=== PATIENT | male | born 1960 | race Caucasian/White ===

== ENCOUNTER → 2016-08-29 | Outpatient (CLI) | payer BC ==
[~2016-08-29] MED LIST: OMEP20CA9 PO; QUIN40TA18 PO; ZOLP10TA PO; [UNRECOGNIZED DRUG - CODE] PO
[2016-08-29 12:13] LABS: BASO % 0.8 %; BASO ABS # 0.05 K/uL (0-0.2); COMPLETE YES; EOS % 6.2 %; HEMATOCRIT 43.4 % (42-52); IG% 0.5 %; LYMPH % 31.8 %; LYMPH ABS # 1.89 K/uL (1.2-3.4); MEAN CELL VOLUME 88.8 fL (80-100); MEAN CORPUSCULAR HEMOGLOBIN 31.9 pg (25-34); MEAN CORPUSCULAR HGB CONC 35.9 g/dl (32-36); MEAN PLATELET VOLUME 9.8 fL (7.4-10.4); MONO % 10.6 %; NEUT % 50.1 %; PLATELET COUNT 319 K/uL (130-400); RED BLOOD COUNT 4.89 M/uL (4.7-6.1); WHITE BLOOD COUNT 5.95 K/uL (4.8-10.8)
[2016-08-29 12:35] LABS: ALT/SGPT 23 U/L (12-78); AST/SGOT 15 U/L (15-37); BLOOD UREA NITROGEN 15 mg/dl (7-18); CALCIUM 8.5 mg/dl (8.5-10.1); CARBON DIOXIDE 27 mmol/L (21-32); CHLORIDE 107 mmol/L (98-107); GLUCOSE 106 mg/dl (70-99); POTASSIUM 3.9 mmol/L (3.5-5.1); SODIUM 140 mmol/L (136-145)
[2016-08-29 12:59] LABS: ALKALINE PHOSPHATASE 51 U/L (45-117); CHOLESTEROL 194 mg/dl (0-200); CHOLESTEROL/HDL RATIO 4.7; HDL CHOLESTEROL 41 mg/dl; LDL CHOLESTEROL CALCULATED 115 mg/dl; TRIGLYCERIDES 190 mg/dl (0-150); VERY LOW DENSITY LIPOPROT CALC 38 mg/dl
== END | disposition home or self-care (01) ==
LOC: C.LAB1850 09:22
PROVIDERS: ATTEND Internal Medicine Pulmonary Disease
DX: I10 Essential (primary) hypertension (principal); J44.9 Chronic obstructive pulmonary disease, unspecified; E78.5 Hyperlipidemia, unspecified

== ENCOUNTER → 2017-01-10 | Outpatient (CLI) | payer BC | END | disposition home or self-care (01) | LOC: C.LAB1850 12:15 | PROVIDERS: ATTEND Urology | DX: R97.20 Elevated prostate specific antigen [PSA] (principal) ==

== ENCOUNTER → 2017-12-05 | Outpatient (CLI) | payer OTHER ==
[~2017-12-05] MED LIST changes: +QUIN1TAB49 PO; -QUIN40TA18 PO
[2017-12-05 12:21] LABS: BASO % 0.9 %; BASO ABS # 0.05 K/uL (0-0.2); EOS % 6.2 %; EOS ABS # 0.33 K/uL (0-0.5); HEMATOCRIT 43.3 % (42-52); HEMOGLOBIN 15.2 g/dL (14.0-18.0); IG# 0.03 K/uL (0.00-0.02); LYMPH % 27.9 %; LYMPH ABS # 1.49 K/uL (1.2-3.4); MEAN CORPUSCULAR HEMOGLOBIN 30.9 pg (25-34); MEAN CORPUSCULAR HGB CONC 35.1 g/dl (32-36); MEAN PLATELET VOLUME 9.8 fL (7.4-10.4); MONO % 10.7 %; MONO ABS # 0.57 K/uL (0.11-0.59); NEUT % 53.7 %; NEUT ABS # 2.88 K/uL (1.4-6.5); PLATELET COUNT 357 K/uL (130-400); RED CELL DISTRIBUTION WIDTH CV 12.8 % (11.5-14.5); RED CELL DISTRIBUTION WIDTH SD 40.9 fL (36.4-46.3); WHITE BLOOD COUNT 5.35 K/uL (4.8-10.8)
[2017-12-05 12:52] LABS: ALBUMIN 3.9 gm/dl (3.4-5.0); ALKALINE PHOSPHATASE 58 U/L (45-117); ALT/SGPT 24 U/L (12-78); AST/SGOT 16 U/L (15-37); BLOOD UREA NITROGEN 12 mg/dl (7-18); CALCIUM 8.3 mg/dl (8.5-10.1); CARBON DIOXIDE 25 mmol/L (21-32); CHOLESTEROL 178 mg/dl (0-200); CREATININE 1.11 mg/dl (0.60-1.40); GLUCOSE 100 mg/dl (70-99); LDL CHOLESTEROL CALCULATED 113 mg/dl; POTASSIUM 4.4 mmol/L (3.5-5.1); SODIUM 136 mmol/L (136-145); TOTAL PROTEIN 8.2 gm/dl (6.4-8.2)
== END | disposition home or self-care (01) ==
LOC: C.LAB1850 10:52
PROVIDERS: ATTEND Internal Medicine Pulmonary Disease
DX: I10 Essential (primary) hypertension (principal); J44.9 Chronic obstructive pulmonary disease, unspecified; N40.0 Benign prostatic hyperplasia without lower urinary tract symptoms; N52.9 Male erectile dysfunction, unspecified; E78.5 Hyperlipidemia, unspecified; C04.9 Malignant neoplasm of floor of mouth, unspecified

== ENCOUNTER 2023-01-18 15:50 | Inpatient (IN) ==
[2023-01-18 16:58] LABS: Basophils # (auto) 0.08 K/uL (0.00-0.20); Basophils % (auto) 1.4 %; Eosinophils # (auto) 0.14 K/uL (0.00-0.50); Eosinophils % (auto) 2.5 %; Hematocrit (blood only) 26.3 % (42.0-52.0); Hemoglobin 9.6 g/dl (14.0-18.0); Immature Granulocytes # (auto) 0.05 K/uL (0.01-0.20); Immature Granulocytes % (auto) 0.9 %; Lymphocytes % (auto) 12.3 %; Mean Corpuscular Hemoglobin 34.8 pg (25.0-34.0); Mean Corpuscular Hgb Conc 36.5 g/dL (32.0-36.0); Mean Corpuscular Volume 95.3 fL (80.0-100.0); Mean Platelet Volume 9.5 fL (9.4-12.4); Monocytes # (auto) 0.66 K/uL (0.11-0.59); Monocytes % (auto) 11.6 %; Neutrophils # (auto) 4.08 K/uL (1.40-6.50); Neutrophils % (auto) 71.3 %; Platelet Count 258 K/uL (130-400); RDW Coefficient of Variation 11.9 % (11.5-14.5); RDW Standard Deviation 41.1 fL (36.4-46.3); Red Blood Count 2.76 M/uL (4.70-6.10); White Blood Count 5.71 K/ul (4.8-10.8)
[2023-01-18 17:21] LABS: Alanine Aminotransferase 91 U/L (7-52); Albumin Globulin Ratio 1.4 (0.9-2); Albumin Level 4.6 gm/dl (3.4-5.0); Alkaline Phosphatase 67 U/L (34-104); Anion Gap 14 (3-11); Aspartate Aminotransferase 104 U/L (13-39); BUN Creatinine Ratio 15.7 (10-20); Blood Urea Nitrogen 62 mg/dl (6-23); Calcium 8.6 mg/dl (8.6-10.3); Carbon Dioxide 21 mmol/L (21-32); Chloride 91 mmol/L (98-107); Est GFR (African American) 17.4 ml/min; Globulin 3.4 gm/dl (2.5-4.0); Glucose 110 mg/dl (70-99(Fasting)); Potassium 4.4 mmol/L (3.5-5.1); Sodium 126 mmol/L (136-145)
[2023-01-18 17:25] LABS: INR 1.1 (0.9-1.1); Partial Thromboplastin Ratio 1.2; Partial Thromboplastin Time 33.3 Seconds (21.0-31.0); Prothrombin Time 11.5 Seconds (9.0-12.0)
[2023-01-18] MEDS ORDERED: PANTOprazole 40 MG in SYRINGE 0 ML IV ONE (18:25)
[2023-01-18] MEDS ORDERED: SODIUM CHLORIDE 0.9% 1,000 ML IV SCH (18:30)
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
[2023-01-18 19:03] LABS: Lipase 86 U/L (11-82); Magnesium 0.8 mg/dl (1.7-2.4)
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
[2023-01-18] MEDS: MAGNESIUM SULFATE / D5W 1 GM/100 ML BAG IV SCH ×2 (19:35→21:34)
--- NOTE | 2023-01-18 19:59 | CT Scan Report ---
Exam(s): CT ABDOMEN + PELVIS Without Contrast EXAM: CT Abdomen and Pelvis Without Intravenous Contrast CLINICAL HISTORY: Reason for exam: CHERI. TECHNIQUE: Axial computed tomography images of the abdomen and pelvis without intravenous contrast. CTDI is 16.97 mGy and DLP is 733.94 mGy-cm. Automated exposure control was utilized for the study. A dose lowering technique was utilized adhering to the principles of ALARA. COMPARISON: No relevant prior studies available. FINDINGS: Lung bases: Unremarkable. No mass. No consolidation. ABDOMEN: Liver: Hepatic steatosis. Gallbladder and bile ducts: Cholelithiasis. No ductal dilation. Pancreas: Unremarkable. No ductal dilation. Spleen: Unremarkable. No splenomegaly. Adrenals: Unremarkable. No mass. Kidneys and ureters: Unremarkable. No hydronephrosis, nephrolithiasis, or obstructive uropathy. Stomach and bowel: Submucosal fatty infiltration of the ascending and proximal transverse colon, consistent with sequelae of previous colitis. Diverticulosis, without acute diverticulitis. No small bowel obstruction. No free intraperitoneal air. PELVIS: Appendix: No findings to suggest acute appendicitis. Bladder: Unremarkable. No stones. Reproductive: Unremarkable as visualized. ABDOMEN and PELVIS: Intraperitoneal space: Unremarkable. No free air. No significant fluid collection. Bones/joints: Degenerative changes of the spine. No acute fracture. No dislocation. Soft tissues: Small fat-containing RIGHT inguinal hernia. Vasculature: Atherosclerotic changes of the aorta. No abdominal aortic aneurysm. Lymph nodes: Unremarkable. No enlarged lymph nodes. IMPRESSION: 1. No hydronephrosis, nephrolithiasis, or obstructive uropathy. 2. Submucosal fatty infiltration of the ascending and proximal transverse colon, consistent with sequelae of previous colitis. 3. Hepatic steatosis. 4. Cholelithiasis. 5. Diverticulosis, without acute diverticulitis. No small bowel obstruction. No free intraperitoneal air. Electronically signed by: Wayne Peralta MD 01/18/23 19:58 PM
[2023-01-18] MEDS ORDERED: LORazepam 2 MG/1 ML VIAL IV PRN (20:10)
[2023-01-18] MEDS ORDERED: THIAMINE HCL 300 MG in SODIUM CHLORIDE 0.9% 50 ML IV STA (20:12)
[2023-01-18] MEDS ORDERED: FOLIC ACID 1 MG in SYRINGE 9.8 ML IV STA (20:13)
[2023-01-18 20:14] LABS: Reticulocyte % 2.9 % (0.5-2.0); Reticulocytes # 0.08 10^6/uL (0.02-0.10)
[2023-01-18] MEDS ORDERED: LACTATED RINGER'S 1,000 ML IV SCH (20:15)
[2023-01-18 20:49] LABS: Folate (Folic Acid),Ser orPlas 4.24 ng/ml (>5.38)
[2023-01-18 21:08] LABS: Unsaturated Iron Binding Cap 150 mcg/dl (155-355)
[2023-01-18 22:19] LABS: Appearance Urine Clear (Clear); Bacteria Urine Automated Negative (Negative); Bilirubin Urine Negative (Negative); Blood Urine Negative (Negative); Cast Urine Automated 0 /lpf (0-5); Color Urine Yellow; Epithelial Cell Urine Auto 0-5 /lpf (0-5); Glucose Urine UA Negative (Negative); Ketones Urine Negative (Negative); Leukocyte Esterase Urine Negative (Negative); Nitrite Urine Negative (Negative); Protein Urine Trace (Negative); RBC Urine Automated 0-4 /hpf (0-4); Urobilinogen Urine Negative (Negative); WBC Urine Automated 0 /hpf (0-5)
[2023-01-18] MEDS ORDERED: ALBUTEROL HFA 8 GM INHALER INH PRN (22:25)
[2023-01-18 22:48] LABS: Total Protein Urine Random 36.9 mg/dl (0-11.9)
[2023-01-18 22:53] LABS: Creatinine Urine Random 97.9 mg/dl; Protein Creatinine Ratio Urine 0.4 (0-0.2)
[2023-01-19] MEDS ORDERED: PNEUMOCOCCAL Polysaccharide Vaccine 25mcg/0.5mL vial/Syr IM ONE (01:00)
[2023-01-19] MEDS: MAGNESIUM SULFATE / D5W 1 GM/100 ML BAG IV SCH ×3 (01:06→06:02)
[2023-01-19] MEDS: ALPRAZolam 0.5 MG TABLET PO SCH ×3 (01:06→20:55)
[2023-01-19 07:06] LABS: Basophils # (auto) 0.04 K/uL (0.00-0.20); Basophils % (auto) 1.2 %; Eosinophils # (auto) 0.16 K/uL (0.00-0.50); Eosinophils % (auto) 4.6 %; Hematocrit (blood only) 23.6 % (42.0-52.0); Hemoglobin 8.8 g/dl (14.0-18.0); Immature Granulocytes # (auto) 0.04 K/uL (0.01-0.20); Immature Granulocytes % (auto) 1.2 %; Lymphocytes # (auto) 0.59 K/uL (1.20-3.40); Lymphocytes % (auto) 17.1 %; Mean Corpuscular Hemoglobin 35.5 pg (25.0-34.0); Mean Corpuscular Hgb Conc 37.3 g/dL (32.0-36.0); Mean Corpuscular Volume 95.2 fL (80.0-100.0); Mean Platelet Volume 9.4 fL (9.4-12.4); Monocytes % (auto) 8.7 %; Neutrophils # (auto) 2.32 K/uL (1.40-6.50); Neutrophils % (auto) 67.2 %; Platelet Count 230 K/uL (130-400); RDW Coefficient of Variation 11.8 % (11.5-14.5); RDW Standard Deviation 41.1 fL (36.4-46.3); Red Blood Count 2.48 M/uL (4.70-6.10); White Blood Count 3.45 K/ul (4.8-10.8)
[2023-01-19 07:15] LABS: Estimated Average Glucose 97 mg/dl
[2023-01-19 07:26] LABS: Albumin Globulin Ratio 1.4 (0.9-2); BUN Creatinine Ratio 17.6 (10-20); Bilirubin,Total 0.9 mg/dl (0.2-1.0); Chol HDL Ratio 2.4 (0-5); Creatinine Clr Calc Pharmacy 22.4 ml/min; Est GFR (African American) 26.5 ml/min; Est GFR (Non-African American) 22.9 ml/min; Globulin 2.8 gm/dl (2.5-4.0); Magnesium 2.6 mg/dl (1.7-2.4); Potassium 4.2 mmol/L (3.5-5.1); Total Protein 6.8 gm/dl (6.0-8.3)
[2023-01-19 07:29] LABS: Prothrombin Time 11.4 Seconds (9.0-12.0)
[2023-01-19] MEDS: THIAMINE HCL 100 MG TAB PO SCH (08:42)
[2023-01-19] MEDS: dilTIAZem HCL 240 MG CAPCR PO SCH (08:42)
[2023-01-19] MEDS: FOLIC ACID 1 MG TAB PO SCH (08:42)
--- NOTE | 2023-01-19 15:50 | Hospitalist Progress Note ---
Date of Service January 19, 2023 Assessment & Plan (1) Hypomagnesemia: Plan: -Likely multifactorial including alcohol abuse and malnutrition -Was recently taken off indapamide, this could have been exacerbating his levels as well resolved (2) Renal failure: Plan: -Cr up to 3.95 on admission. 0.9 last year -Likely multifactorial including chronic alcohol abuse, NSAID use, previously uncontrolled HTN, but will need to evaluate for other etiologies Improving with hydration 2.79 today Continue IV fluids. Normal saline at 125 mils an hour -Patient states he was recently taken off indapamide as well after his renal function was noted to be decreasing on recent labs -Noted to have 1+ protein in his urine today -No signs of obstruction on CT of the abd/pelvis today -Nephrology consultation if he is not improving or continuing to decline (3) Alcohol abuse: Plan: -Drinks approximately 3-4 glasses of whiskey (two fingers high for each) and a can of beer nightly -Last drink was the night before admission -Mild subjective tremor at this time - continue AWSS at risk protocol Patient does not think that he is withdrawing. He is not shaking anymore. Continue thiamine and folic acid -Case management consult placed to speak about possible rehab options -Continue to monitor on tele (4) Hyponatremia: Plan: -Sodium noted to be 126 Improved to 130 today with IV fluids -Likely a combination of beer potomania, malnutrition, renal failure, and recent diuretic use continue IV fluids monitor (5) Elevated LFTs: Plan: -Likely due to his drinking and hepatic steatosis -No signs of cirrhosis on CT, noted to have hepatic steatosis - hepatitis panel pending (6) Hypertension: Plan: -Stable -Continue diltiazem -Hold lisinopril with current renal function (7) Anemia: Plan: -Appears to be chronic, no recent signs of bleeding -Continue thiamine and folic acid ordered on admission -Additional workup as needed based on initial workup (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 -No signs of active bleeding -Is being followed outpatient and does not want them to be removed at this time as they are not causing singificant distress (9) Dyslipidemia: Plan: -Not currently on a statin - A1c 5 and lipid panel unremarkable (10) Chronic obstructive pulmonary disease: Plan: -Stable -Minimal symptoms outpatient -Continue prn albuterol and Spiriva (11) BPH with urinary obstruction: Plan: -Could consider starting flomax if retaining (12) Anxiety: Plan: -Continue prn Xanax -Would recommend PCP look into trying to wean him off Admission and Anticipated Discharge Date Admission Date: January 18, 2023 Subjective Patient feels better overall. Denies chest pain or shortness of breath. Review of Systems Review of Systems: All systems reviewed & are unremarkable except as noted in Subjective Physical Exam Physical Exam: General: Awake, conversant Heart: S1, S2/regular rate and rhythm, no murmur rubs or gallops Lungs: Clear to auscultation bilaterally. Normal effort Abdomen: Soft/nontender/nondistended. No hepatosplenomegaly Extremities: No clubbing/cyanosis. No edema Behavior: Appropriate, cooperative Results & Data Results & Data Vital Signs (Past 12 Hours) Vital Signs Temp Pulse Pulse Resp BP Pulse Ox O2 Del Method 01/19/23 15:08 90 01/19/23 12:43 36.6 C 89 17 107/64 96 Room Air 01/19/23 11:12 84 01/19/23 08:40 36.9 C 86 18 128/87 99 Room Air Laboratory Results Abnormal lab results 01/18/23 01/18/23 01/18/23 Range/Units 16:40 16:40 16:40 WBC (4.8-10.8) K/ul RBC 2.76 L (4.70-6.10) M/uL Hgb 9.6 L (14.0-18.0) g/dl Hct 26.3 L (42.0-52.0) % MCH 34.8 H (25.0-34.0) pg MCHC 36.5 H (32.0-36.0) g/dL Reticulocyte % (Auto) (0.5-2.0) % Lymph # (Auto) 0.70 L (1.20-3.40) K/uL [place] # (Auto) 0.66 H (0.11-0.59) K/uL APTT 33.3 H (21.0-31.0) Seconds Sodium 126 L (136-145) mmol/L Chloride 91 L (98-107) mmol/L Anion Gap 14 H (3-11) BUN 62 H (6-23) mg/dl Creatinine 3.95 H (0.6-1.4) mg/dl Glucose 110 H (70-99(Fasting)) mg/dl Calcium (8.6-10.3) mg/dl Magnesium 0.8 L* (1.7-2.4) mg/dl Unsaturated IBC 150 L (155-355) mcg/dl Transferrin (200-360) mg/dl Ferritin (8-388) ng/ml AST 104 H (13-39) U/L ALT 91 H (7-52) U/L Lipase 86 H (11-82) U/L Folate (>5.38) ng/ml Urine Protein (Negative) Urine Osmolality (500-800) mOsm/kg U Random Total Protein (0-11.9) mg/dl Protein/Creatinin Ratio (0-0.2) 01/18/23 01/18/23 01/18/23 Range/Units 16:40 16:40 16:40 WBC (4.8-10.8) K/ul RBC (4.70-6.10) M/uL Hgb (14.0-18.0) g/dl Hct (42.0-52.0) % MCH (25.0-34.0) pg MCHC (32.0-36.0) g/dL Reticulocyte % (Auto) 2.9 H (0.5-2.0) % Lymph # (Auto) (1.20-3.40) K/uL [place] # (Auto) (0.11-0.59) K/uL APTT (21.0-31.0) Seconds Sodium (136-145) mmol/L Chloride (98-107) mmol/L Anion Gap (3-11) BUN (6-23) mg/dl Creatinine (0.6-1.4) mg/dl Glucose (70-99(Fasting)) mg/dl Calcium (8.6-10.3) mg/dl Magnesium (1.7-2.4) mg/dl Unsaturated IBC 153 L (155-355) mcg/dl Transferrin 181 L (200-360) mg/dl Ferritin 4215.0 H (8-388) ng/ml AST (13-39) U/L ALT (7-52) U/L Lipase (11-82) U/L Folate 4.24 L (>5.38) ng/ml Urine Protein (Negative) Urine Osmolality (500-800) mOsm/kg U Random Total Protein (0-11.9) mg/dl Protein/Creatinin Ratio (0-0.2) 01/18/23 01/18/23 01/18/23 Range/Units 21:45 21:45 21:45 WBC (4.8-10.8) K/ul RBC (4.70-6.10) M/uL Hgb (14.0-18.0) g/dl Hct (42.0-52.0) % MCH (25.0-34.0) pg MCHC (32.0-36.0) g/dL Reticulocyte % (Auto) (0.5-2.0) % Lymph # (Auto) (1.20-3.40) K/uL [place] # (Auto) (0.11-0.59) K/uL APTT (21.0-31.0) Seconds Sodium (136-145) mmol/L Chloride (98-107) mmol/L Anion Gap (3-11) BUN (6-23) mg/dl Creatinine (0.6-1.4) mg/dl Glucose (70-99(Fasting)) mg/dl Calcium (8.6-10.3) mg/dl Magnesium (1.7-2.4) mg/dl Unsaturated IBC (155-355) mcg/dl Transferrin (200-360) mg/dl Ferritin (8-388) ng/ml AST (13-39) U/L ALT (7-52) U/L Lipase (11-82) U/L Folate (>5.38) ng/ml Urine Protein Trace H (Negative) Urine Osmolality 300 L (500-800) mOsm/kg U Random Total Protein 36.9 H (0-11.9) mg/dl Protein/Creatinin Ratio 0.4 H (0-0.2) 01/19/23 01/19/23 Range/Units 06:43 06:43 WBC 3.45 L (4.8-10.8) K/ul RBC 2.48 L (4.70-6.10) M/uL Hgb 8.8 L (14.0-18.0) g/dl Hct 23.6 L (42.0-52.0) % MCH 35.5 H (25.0-34.0) pg MCHC 37.3 H (32.0-36.0) g/dL Reticulocyte % (Auto) (0.5-2.0) % Lymph # (Auto) 0.59 L (1.20-3.40) K/uL [place] # (Auto) (0.11-0.59) K/uL APTT (21.0-31.0) Seconds Sodium 130 L (136-145) mmol/L Chloride 97 L (98-107) mmol/L Anion Gap (3-11) BUN 49 H (6-23) mg/dl Creatinine 2.79 H D (0.6-1.4) mg/dl Glucose 117 H (70-99(Fasting)) mg/dl Calcium 8.0 L (8.6-10.3) mg/dl Magnesium 2.6 H (1.7-2.4) mg/dl Unsaturated IBC (155-355) mcg/dl Transferrin (200-360) mg/dl Ferritin (8-388) ng/ml AST 105 H (13-39) U/L ALT 82 H (7-52) U/L Lipase (11-82) U/L Folate (>5.38) ng/ml Urine Protein (Negative) Urine Osmolality (500-800) mOsm/kg U Random Total Protein (0-11.9) mg/dl Protein/Creatinin Ratio (0-0.2) Diagnostic Findings Abdomen/Pelvis CT 01/18/23 18:26 Exam(s): CT ABDOMEN + PELVIS Without Contrast EXAM: CT Abdomen and Pelvis Without Intravenous Contrast CLINICAL HISTORY: Reason for exam: CHERI. TECHNIQUE: Axial computed tomography images of the abdomen and pelvis without intravenous contrast. CTDI is 16.97 mGy and DLP is 733.94 mGy-cm. Automated exposure control was utilized for the study. A dose lowering technique was utilized adhering to the principles of ALARA. COMPARISON: No relevant prior studies available. FINDINGS: Lung bases: Unremarkable. No mass. No consolidation. ABDOMEN: Liver: Hepatic steatosis. Gallbladder and bile ducts: Cholelithiasis. No ductal dilation. Pancreas: Unremarkable. No ductal dilation. Spleen: Unremarkable. No splenomegaly. Adrenals: Unremarkable. No mass. Kidneys and ureters: Unremarkable. No hydronephrosis, nephrolithiasis, or obstructive uropathy. Stomach and bowel: Submucosal fatty infiltration of the ascending and proximal transverse colon, consistent with sequelae of previous colitis. Diverticulosis, without acute diverticulitis. No small bowel obstruction. No free intraperitoneal air. PELVIS: Appendix: No findings to suggest acute appendicitis. Bladder: Unremarkable. No stones. Reproductive: Unremarkable as visualized. ABDOMEN and PELVIS: Intraperitoneal space: Unremarkable. No free air. No significant fluid collection. Bones/joints: Degenerative changes of the spine. No acute fracture. No dislocation. Soft tissues: Small fat-containing RIGHT inguinal hernia. Vasculature: Atherosclerotic changes of the aorta. No abdominal aortic aneurysm. Lymph nodes: Unremarkable. No enlarged lymph nodes. IMPRESSION: 1. No hydronephrosis, nephrolithiasis, or obstructive uropathy. 2. Submucosal fatty infiltration of the ascending and proximal transverse colon, consistent with sequelae of previous colitis. 3. Hepatic steatosis. 4. Cholelithiasis. 5. Diverticulosis, without acute diverticulitis. No small bowel obstruction. No free intraperitoneal air. Electronically signed by: Wayne Peralta MD 01/18/23 19:58 PM PG Care Time/CCT Total # of Minutes Spent Total Time Spent with Patient: Total time spent is greater than 50% in coordination of care (as documented) at patient's floor/unit and/or counseling patient: Coding Level of Care Code 42156 SUB INP/OBS CARE 2/35MIN Diagnoses Hypomagnesemia E83.42 Renal failure N19 Alcohol abuse F10.10 Hyponatremia E87.1 Elevated LFTs R79.89 Hypertension I10 Anemia D64.9 Anal condyloma A63.0 Dyslipidemia E78.5 Chronic obstructive pulmonary disease J44.9 BPH with urinary obstruction N40.1; N13.8 Anxiety F41.9
[2023-01-19] MEDS: SODIUM CHLORIDE 0.9% 1,000 ML IV SCH (16:32)
--- NOTE | 2023-01-19 18:10 | Electrocardiogram Report ---
Test Reason : Blood Pressure : / mmHG Vent. Rate : 082 BPM Atrial Rate : 082 BPM P-R Int : 156 ms QRS Dur : 082 ms QT Int : 354 ms P-R-T Axes : 071 058 074 degrees QTc Int : 413 ms Normal sinus rhythm When compared with ECG of 08-MAR-2012 18:01, QT has shortened Confirmed by Emmanuel Yañez ([id number]) on 01/19/2023 6:09:56 PM Referred By: Shahid Lujan Confirmed By:tSanley Yañez
[2023-01-19] MEDS ORDERED: Nursing to Pharmacy Communication SCH ×2 (18:30→18:45)
[2023-01-19] MEDS ORDERED: ALUMINUM/MAGNESIUM/SIMETH (MAALOX MAX) 30 ML UDC PO PRN (19:15)
[2023-01-19] MEDS ORDERED: ALPRAZolam 0.25 MG TABLET PO ONE (21:59)
[2023-01-19] MEDS ORDERED: FAMOTIDINE 40 MG TABLET PO ONE (22:46)
[2023-01-20] MEDS: SODIUM CHLORIDE 0.9% 1,000 ML IV SCH ×2 (00:24→08:45)
[2023-01-20] MEDS ORDERED: SIMETHICONE 80 MG CHEW PO ONE (01:33)
[2023-01-20 06:04] LABS: Basophils # (auto) 0.04 K/uL (0.00-0.20); Basophils % (auto) 0.7 %; Eosinophils # (auto) 0.01 K/uL (0.00-0.50); Eosinophils % (auto) 0.2 %; Hematocrit (blood only) 25.3 % (42.0-52.0); Hemoglobin 9.1 g/dl (14.0-18.0); Immature Granulocytes # (auto) 0.03 K/uL (0.01-0.20); Immature Granulocytes % (auto) 0.5 %; Lymphocytes # (auto) 0.25 K/uL (1.20-3.40); Lymphocytes % (auto) 4.5 %; Mean Corpuscular Hemoglobin 34.9 pg (25.0-34.0); Mean Corpuscular Volume 96.9 fL (80.0-100.0); Mean Platelet Volume 9.4 fL (9.4-12.4); Monocytes # (auto) 0.37 K/uL (0.11-0.59); Monocytes % (auto) 6.6 %; Neutrophils # (auto) 4.88 K/uL (1.40-6.50); Neutrophils % (auto) 87.5 %; Platelet Count 222 K/uL (130-400); RDW Coefficient of Variation 11.9 % (11.5-14.5); RDW Standard Deviation 42.4 fL (36.4-46.3); Red Blood Count 2.61 M/uL (4.70-6.10); White Blood Count 5.58 K/ul (4.8-10.8)
[2023-01-20 06:20] LABS: Albumin Globulin Ratio 1.3 (0.9-2); BUN Creatinine Ratio 21.3 (10-20); Bilirubin,Total 0.8 mg/dl (0.2-1.0); Calcium 8.5 mg/dl (8.6-10.3); Creatinine Clr Calc Pharmacy 41.7 ml/min; Est GFR (African American) 50.5 ml/min; Est GFR (Non-African American) 43.5 ml/min; Globulin 3.2 gm/dl (2.5-4.0); Magnesium 1.8 mg/dl (1.7-2.4); Potassium 4.6 mmol/L (3.5-5.1); Total Protein 7.2 gm/dl (6.0-8.3)
[2023-01-20 06:25] LABS: Prothrombin Time 11.3 Seconds (9.0-12.0)
[2023-01-20] MEDS ORDERED: POLYETHYLENE (MIRALAX) 17 GM PACK PO PRN (07:42)
[2023-01-20] MEDS: dilTIAZem HCL 240 MG CAPCR PO SCH (08:40)
[2023-01-20] MEDS: THIAMINE HCL 100 MG TAB PO SCH (08:40)
[2023-01-20] MEDS: FOLIC ACID 1 MG TAB PO SCH (08:40)
[2023-01-20] MEDS: DOCUSATE SODIUM 100 MG CAP PO SCH ×2 (08:45→20:08)
[2023-01-20] MEDS: ALPRAZolam 0.5 MG TABLET PO SCH ×2 (08:45→20:08)
[2023-01-20] MEDS: PANTOprazole 40 MG TAB PO SCH (08:46)
[2023-01-20 11:12] LABS: HBSAG NON-REACTIVE (NON-REACTIVE); Hepatitis A Antibody IgM NON-REACTIVE (NON-REACTIVE); Hepatitis B Core Antibody IgM NON-REACTIVE (NON-REACTIVE)
[2023-01-20] MEDS ORDERED: bisacodyL 10 MG SUPP PR STA (14:52)
--- NOTE | 2023-01-20 14:52 | Hospitalist Progress Note ---
Date of Service January 20, 2023 Assessment & Plan (1) Hypomagnesemia: Plan: -Likely multifactorial including alcohol abuse and malnutrition -Was recently taken off indapamide, this could have been exacerbating his levels as well resolved (2) Renal failure: Plan: -Cr up to 3.95 on admission. 0.9 last year -Likely multifactorial including chronic alcohol abuse, NSAID use, previously uncontrolled HTN, but will need to evaluate for other etiologies Improving with hydration 3.7 on admission to 1.6 today We will stop IV fluids and encourage p.o. intake as the patient complains of feeling bloated -Patient states he was recently taken off indapamide as well after his renal function was noted to be decreasing on recent labs -Noted to have 1+ protein in his urine today -No signs of obstruction on CT of the abd/pelvis today -Nephrology consultation if he is not improving or continuing to decline (3) Alcohol abuse: Plan: -Drinks approximately 3-4 glasses of whiskey (two fingers high for each) and a can of beer nightly -Last drink was the night before admission - does not appear to be withdrawing at this time - continue AWSS at risk protocol Patient does not think that he is withdrawing. He is not shaking anymore. Continue thiamine and folic acid -Case management consult placed to speak about possible rehab options -Continue to monitor on tele (4) Hyponatremia: Plan: -Sodium noted to be 126 Improved to 132 Discontinue IV fluids -Likely a combination of beer potomania, malnutrition, renal failure, and recent diuretic use monitor (5) Elevated LFTs: Plan: -Likely due to his drinking and hepatic steatosis -No signs of cirrhosis on CT, noted to have hepatic steatosis - hepatitis panel pending (6) Hypertension: Plan: -Stable -Continue diltiazem -Hold lisinopril with current renal function (7) Anemia: Plan: -Appears to be chronic, no recent signs of bleeding -Continue thiamine and folic acid ordered on admission -Additional workup as needed based on initial workup (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 -No signs of active bleeding -Is being followed outpatient and does not want them to be removed at this time as they are not causing singificant distress (9) Dyslipidemia: Plan: -Not currently on a statin - A1c 5 and lipid panel unremarkable (10) Chronic obstructive pulmonary disease: Plan: -Stable -Minimal symptoms outpatient -Continue prn albuterol and Spiriva (11) BPH with urinary obstruction: Plan: -Could consider starting flomax if retaining (12) Anxiety: Plan: -Continue prn Xanax -Would recommend PCP look into trying to wean him off (13) Constipation: Plan: on Colace, MiraLAX Added Dulcolax suppository Admission and Anticipated Discharge Date Admission Date: January 18, 2023 Subjective patient complains that he has a belly distention. He is very constipated and is fixated on it. Review of Systems Review of Systems: All systems reviewed & are unremarkable except as noted in Subjective Physical Exam Physical Exam: General: Awake, conversant Heart: S1, S2/regular rate and rhythm, no murmur rubs or gallops Lungs: Clear to auscultation bilaterally. Normal effort Abdomen: Soft/nontender/distended. No hepatosplenomegaly. Positive bowel sounds Extremities: No clubbing/cyanosis. No edema Behavior: Appropriate, cooperative Results & Data Results & Data Vital Signs (Past 12 Hours) Vital Signs Temp Pulse Pulse Resp BP Pulse Ox O2 Del Method 01/20/23 11:28 37.4 C 105 H 18 138/78 98 Room Air 01/20/23 07:40 36.6 C 104 H 18 138/78 98 Room Air 01/20/23 07:28 101 H 01/20/23 03:40 37.3 C 103 H 18 153/88 H 97 Room Air PG Care Time/CCT Total # of Minutes Spent Total Time Spent with Patient: Total time spent is greater than 50% in coordination of care (as documented) at patient's floor/unit and/or counseling patient: Coding Level of Care Code 19790 SUB INP/OBS CARE 2/35MIN Diagnoses Hypomagnesemia E83.42 Renal failure N19 Alcohol abuse F10.10 Hyponatremia E87.1 Elevated LFTs R79.89 Hypertension I10 Anemia D64.9 Anal condyloma A63.0 Dyslipidemia E78.5 Chronic obstructive pulmonary disease J44.9 BPH with urinary obstruction N40.1; N13.8 Anxiety F41.9 Constipation K59.00
[2023-01-20] MEDS ORDERED: ACETAMINOPHEN 1,000 MG/100 ML VIAL IV STA (20:35)
[2023-01-21 06:57] LABS: Basophils # (auto) 0.04 K/uL (0.00-0.20); Basophils % (auto) 0.4 %; Eosinophils # (auto) 0.03 K/uL (0.00-0.50); Eosinophils % (auto) 0.3 %; Hematocrit (blood only) 25.3 % (42.0-52.0); Hemoglobin 9.1 g/dl (14.0-18.0); Immature Granulocytes # (auto) 0.06 K/uL (0.01-0.20); Immature Granulocytes % (auto) 0.6 %; Lymphocytes # (auto) 0.62 K/uL (1.20-3.40); Lymphocytes % (auto) 6.2 %; Mean Corpuscular Hemoglobin 35.3 pg (25.0-34.0); Mean Corpuscular Volume 98.1 fL (80.0-100.0); Mean Platelet Volume 9.6 fL (9.4-12.4); Neutrophils # (auto) 8.32 K/uL (1.40-6.50); Neutrophils % (auto) 83.5 %; Platelet Count 231 K/uL (130-400); RDW Coefficient of Variation 12.4 % (11.5-14.5); RDW Standard Deviation 44.6 fL (36.4-46.3); Red Blood Count 2.58 M/uL (4.70-6.10); White Blood Count 9.97 K/ul (4.8-10.8)
[2023-01-21 07:14] LABS: Albumin Globulin Ratio 1.2 (0.9-2); Albumin Level 3.9 gm/dl (3.4-5.0); BUN Creatinine Ratio 17.4 (10-20); Bilirubin,Total 1.1 mg/dl (0.2-1.0); Calcium 9.1 mg/dl (8.6-10.3); Creatinine Clr Calc Pharmacy 52.7 ml/min; Est GFR (African American) 65.6 ml/min; Est GFR (Non-African American) 56.6 ml/min; Globulin 3.3 gm/dl (2.5-4.0); Magnesium 1.7 mg/dl (1.7-2.4); Potassium 4.7 mmol/L (3.5-5.1); Total Protein 7.2 gm/dl (6.0-8.3)
[2023-01-21 07:26] LABS: INR 1.1 (0.9-1.1); Prothrombin Time 12.4 Seconds (9.0-12.0)
[2023-01-21] MEDS: DOCUSATE SODIUM 100 MG CAP PO SCH (08:04)
[2023-01-21] MEDS: FOLIC ACID 1 MG TAB PO SCH (08:04)
[2023-01-21] MEDS: dilTIAZem HCL 240 MG CAPCR PO SCH (08:04)
[2023-01-21] MEDS: THIAMINE HCL 100 MG TAB PO SCH (08:04)
[2023-01-21] MEDS: ALPRAZolam 0.5 MG TABLET PO SCH (08:07)
[2023-01-21] MEDS: PANTOprazole 40 MG TAB PO SCH (08:18)
--- NOTE | 2023-01-21 11:01 | Discharge Summary ---
Date of Service January 21, 2023 Admission HPI Per Admitting Provider Shahid is a 62 year old male with a PMH significant for alcohol abuse, BPH, COPD, anal condyloma, and medical non-compliance who presented to the [facility] ED on 01/18 at the recommendation of his PCP due to multiple outpatient lab abnormalities. The patient remained stable in the ED. Labs were significant an RBC of 2.76, Hgb of 9.6, Hct of 26, MCHC of 36, lymphocyte count of 0.70, Cr of 3.95 (up from 0.86 as of 02/2022), BUN of 62, AG of 14 with bicarb WNL, sodium of 126, chloride of 91, mag of 0.8, AST of 104, ALT of 91, negative alcohol level. A CT of the abdomen/pelvis wo con was ordered prior to admission. At the time of the exam the patient was lying in bed in no acute distress with his significant other sitting bedside, history was obtained from both. He states that he has been a "heavy drinker" for years. Most recently he has been drinking approximately 3 glasses of whiskey and a can of beer every night. He has been working with his PCP to start improving his health, he wants to to drinking; his last drink was last night. When asked, he denies having severe alcohol withdrawal requiring hospitalization or withdrawal seizures. He feels a little tremulous at this time but nothing severe yet. He smoked approximately 1 PPD for 20 years but quit more than 10 years ago. He has had a decreased appetite and will frequently only eat dinner daily. When asked, he denies recent fever, chills, night sweats, new SOB, cough, chest pain, heart palpitations, nausea, vomiting, early satiety/food becoming stuck while swallowing, dysuria, hematuria, melena, bloody BM's, LE swelling, and recent trauma. His last colonoscopy was last year, he states that he had some polyps removed but was not told of other abnormal findings. We discussed code status, he wishes to be a full code. Please refer to Dr. Darling's attestation for any changes to the treatment plan Admission Exam Per Admitting Provider General:In no acute distress, stated age, non-toxic appearing HEENT:Normocephalic, atraumatic, no scleral icterus, pupils around round, symmetrical, and reactive to light, moist mucus membranes, trachea midline, no thyromegaly Chest/Pulm:No respiratory distress, symmetrical chest expansion, clear breath sounds throughout Cardiac:RRR, no murmurs noted Abdomen:Negative for ascites and bruising, normoactive bowel sounds, soft, non-tender to palpation throughout :Warts associated with condyloma acuminatum without signs of active or recent bleeding Musculoskeletal:Symmetrical and without signs of acute trauma, upper and lower extremities with full ROM, no atrophy, spasticity, or flaccidity Extremities:Radial, dorsalis pedis, and posterior tibial pulses are intact and symmetrical, no edema noted in the BL LE's Skin:Warm, dry, no rashes , lesions, or scars noted Neuro:Alert and oriented to person, place, month, year, and president, no focal defects, no tremors noted Psych:No acute distress, calm and cooperative during the exam Principal Diagnosis Acute kidney injury secondary to dehydration, chronic alcohol abuse, NSAID use Electrolyte imbalances including hypomagnesemia, hyponatremia related to chronic alcohol use Transaminitis related to alcohol abuse Discharge Exam General: Awake, conversant Heart: S1, S2/regular rate and rhythm, no murmur rubs or gallops Lungs: Clear to auscultation bilaterally. Normal effort Abdomen: Soft/nontender/distended. No hepatosplenomegaly. Positive bowel sounds Extremities: No clubbing/cyanosis. No edema Behavior: Appropriate, cooperative Discharge Data Allergies Allergy/AdvReac Type Severity Reaction Status Date / Time levofloxacin Allergy Unknown Unknown Verified 11/01/22 13:31 Consultations 01/18/23 19:17 ED Decision to Admit Stat Ordered Studies 01/18/23 18:26 CT abd pelvis wo con Stat Hospital Course (1) Hypomagnesemia: -Likely multifactorial including alcohol abuse and malnutrition -Was recently taken off indapamide, this could have been exacerbating his levels as well resolved (2) Renal failure: -Cr up to 3.95 on admission. 0.9 last year -Likely multifactorial including chronic alcohol abuse, NSAID use, previously uncontrolled HTN, but will need to evaluate for other etiologies Improving with hydration 3.7 on admission to 1.3 today despite being off of IV fluids since yesterday -Patient states he was recently taken off indapamide as well after his renal function was noted to be decreasing on recent labs -Noted to have 1+ protein in his urine today -No signs of obstruction on CT of the abd/pelvis today Resolved Discharge to home (3) Alcohol abuse: -Drinks approximately 3-4 glasses of whiskey (two fingers high for each) and a can of beer nightly -Last drink was the night before admission - does not appear to be withdrawing at this time Patient does not think that he is withdrawing. He is not shaking anymore. -Case management spoke to patient about possible rehab options (4) Hyponatremia: -Sodium noted to be 126 Improved to 134 Discontinue IV fluids -Likely a combination of beer potomania, malnutrition, renal failure, and recent diuretic use (5) Elevated LFTs: -Likely due to his drinking and hepatic steatosis -No signs of cirrhosis on CT, noted to have hepatic steatosis - hepatitis panel negative (6) Hypertension: -Stable -Continue diltiazem -Hold lisinopril since blood pressure stable without it. (7) Anemia: -Appears to be chronic, no recent signs of bleeding -Continue thiamine and folic acid ordered on admission -Additional workup as needed based on initial workup (8) Anal condyloma: -Consistent with warts from HPV -No signs of active bleeding -Is being followed outpatient and does not want them to be removed at this time as they are not causing singificant distress (9) Dyslipidemia: -Not currently on a statin - A1c 5 and lipid panel unremarkable (10) Chronic obstructive pulmonary disease: -Stable -Minimal symptoms outpatient -Continue prn albuterol and Spiriva (11) BPH with urinary obstruction: -Could consider starting flomax if retaining (12) Anxiety: -Continue prn Xanax -Would recommend PCP look into trying to wean him off (13) Constipation: Resolved Plan Discharge to home. Spoke to sister on the phone. Advised on alcohol cessation Total Time Total Time Spent Total Time Spent (In Minutes): 35 Discharge Plan Discharge Items Patient Disposition: Home - Self-Care Reason For Visit: HYPOKALEMIA, RENAL FAILURE, HYPONATREMIA, ANEMIA Discharge Diagnosis: Acute kidney injury secondary to dehydration, chronic alcohol abuse, NSAID use Electrolyte imbalances including hypomagnesemia, hyponatremia related to chronic alcohol use Transaminitis related to alcohol abuse Activity: Resume your previous activity Non-emergency contact: Primary Care Provider Call non-emergency contact if: you have any medication questions and your symptoms worsen Follow-up/Referrals: Shahid Lujan MD [Primary Care Provider] - (PLEASE CALL YOUR PRIMARY CARE PROVIDER TO SCHEDULE A HOSPITAL FOLLOW-UP DISCHARGE SUMMARY WITHIN 7-10 DAYS.) Diet: Heart Healthy Addtl Attending Provider Instructions: Advised to follow-up with PCP in 1 week Pending Studies at Discharge: No Stand-Alone Forms: My [facility] Medications and DC Order Prescriptions: Continued albuterol sulfate [ProAir HFA] 90 mcg/actuation HFA aerosol inhaler 2 puff INH Q6H PRN (Reason: shortness of breath or wheezing) Qty: 18 11RF alprazolam 0.25 mg tablet 0.25 mg PO BID Qty: 60 2RF omeprazole 20 mg capsule,delayed release(DR/EC) See Rx Instructions .ROUTE .COMPLEX Qty: 180 3RF Dose Instruction: Take 1 capsule by mouth twice daily Rx Instructions: Take 1 capsule by mouth twice daily sildenafil (pulm.hypertension) 20 mg tablet 20 mg PO ONCE PRN (Reason: sexual activity) Qty: 60 6RF Rx Instructions: Take 1-5 tablets as needed 1 hour prior to intercourse Do not exceed 100mg in 24 hours fluticasone propion-salmeterol [Advair Diskus] 250-50 mcg/dose blister with device 1 inh inhalation BID PRN (Reason: Shortness Of Breath) diltiazem HCl 240 mg capsule,extended release 24hr 240 mg PO DAILY Rx Instructions: Take 1 capsule by mouth once daily Discontinued lisinopril 40 mg tablet 40 mg PO DAILY Qty: 90 3RF Discharge Orders: Discharge Order (Routine); Ordered 01/21/23 Ordered By: Donna Ledezma Admission Data Admit Date/Time: 01/18/23 19:35 Attending Provider: Donna Ledezma Admit Provider: Gypsy Darling Primary Care Provider: Shahid Lujan Other Providers: Mary Whelan ; Gypsy Darling Other Interventions: Discharge Summary Assessment (RN) Last Done: 01/21/23 11:06 Coding Level of Care Code 23573 INP/OBS DISCH >30 MIN Diagnoses Hypomagnesemia E83.42 Renal failure N19 Alcohol abuse F10.10 Hyponatremia E87.1 Elevated LFTs R79.89 Hypertension I10 Anemia D64.9 Anal condyloma A63.0 Dyslipidemia E78.5 Chronic obstructive pulmonary disease J44.9 BPH with urinary obstruction N40.1; N13.8 Anxiety F41.9 Constipation K59.00
== END 2023-01-21 12:11 | disposition home or self-care (01) | DRG 683 ==
LOC: ED 15:50 → EDINP 19:35 → SUATTDRO 19:35 → 2N 23:35

== ENCOUNTER 2024-01-11 12:21 | Inpatient (IN) ==
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
[2024-01-11 12:49] LABS: Base Excess VBG 6.2 mEq/L; HCO3 VBG 30 mmol/L; Oxygen Saturation VBG 91.4 %; PCO2 VBG 37 mmHg (38-50); PO2 VBG 66 mmHg; pH VBG 7.51 (7.36-7.41)
[2024-01-11 13:15] LABS: Basophils # (auto) 0.03 K/uL (0.00-0.20); Basophils % (auto) 0.3 %; Eosinophils # (auto) 0.01 K/uL (0.00-0.50); Eosinophils % (auto) 0.1 %; Immature Granulocytes # (auto) 0.31 K/uL (0.01-0.20); Immature Granulocytes % (auto) 2.8 %; Lymphocytes # (auto) 1.23 K/uL (1.20-3.40); Mean Corpuscular Hemoglobin 31.5 pg (25.0-34.0); Mean Corpuscular Hgb Conc 34.9 g/dL (32.0-36.0); Mean Corpuscular Volume 90.3 fL (80.0-100.0); Mean Platelet Volume 8.5 fL (9.4-12.4); Monocytes % (auto) 8.9 %; Neutrophils # (auto) 8.63 K/uL (1.40-6.50); Neutrophils % (auto) 76.9 %; Platelet Count 289 K/uL (130-400); RDW Coefficient of Variation 12.9 % (11.5-14.5); RDW Standard Deviation 42.4 fL (36.4-46.3); Red Blood Count 4.76 M/uL (4.70-6.10); White Blood Count 11.21 K/ul (4.8-10.8)
[2024-01-11 13:28] LABS: Albumin Globulin Ratio 1.4 (0.9-2); Albumin Level 4.1 gm/dl (3.4-5.0); BUN Creatinine Ratio 23.1 (10-20); Bilirubin,Total 0.7 mg/dl (0.2-1.0); Calcium 9.3 mg/dl (8.6-10.3); Creatinine Clr Calc Pharmacy 91.5 ml/min; Est GFR (African American) 109.8 ml/min; Est GFR (Non-African American) 94.7 ml/min; Globulin 2.9 gm/dl (2.5-4.0); Magnesium 1.9 mg/dl (1.7-2.4); Potassium 3.7 mmol/L (3.5-5.1)
[2024-01-11 13:33] LABS: Troponin I High Sensitivity 13.8 pg/ml (0-20)
[2024-01-11 13:37] LABS: Prothrombin Time 10.8 Seconds (9.0-12.0)
[2024-01-11 13:41] LABS: Adenovirus PCR Not Detected (NotDetected); Bordetella parapertussis PCR Not Detected (NotDetected); Bordetella pertussis PCR Not Detected (NotDetected); Chlamydia pneumoniae PCR Not Detected (NotDetected); Coronavirus 229E PCR Not Detected (NotDetected); Coronavirus CoV-2 (COVID19)PCR Not Detected (NotDetected); Coronavirus HKU1 PCR Not Detected (NotDetected); Coronavirus NL63 PCR Not Detected (NotDetected); Coronavirus OC43PCR Not Detected (NotDetected); Human Metapneumovirus PCR Not Detected (NotDetected); Influenza A PCR Not Detected (NotDetected); Influenza B PCR Not Detected (NotDetected); Mycoplasma pneumoniae PCR Not Detected (NotDetected); Parainfluenza Virus 1 PCR Not Detected (NotDetected); Parainfluenza Virus 2 PCR Not Detected (NotDetected); Parainfluenza Virus 3 PCR Not Detected (NotDetected); Parainfluenza Virus 4 PCR Not Detected (NotDetected); Respiratory Syncytial VirusPCR Not Detected (NotDetected); Rhinovirus/Enterovirus PCR Not Detected (NotDetected)
--- NOTE | 2024-01-11 13:43 | XRay Report ---
SINGLE VIEW CHEST CLINICAL HISTORY: Dyspnea FINDINGS: 2 AP, portable, upright chest radiographs are compared to study dated 12/29/2023. Correlatio n is made with chest CT dated 03/08/2012. The cardiomediastinal silhouette is top normal for projecti on. Emphysema and chronic interstitial thickening is similar to previous. There is mild bibasilar ate lectasis. No airspace consolidation or large pleural effusion is identified. No pneumothorax is seen. The bony thorax is grossly intact. IMPRESSION: Emphysematous change with no active disease in the chest. ACT 112: Negative or not required by law. Electronically signed by: Checo Webster M.D. 01/11/2024 1:41 PM
[2024-01-11] MEDS: FUROSEMIDE 40 MG/4 ML VIAL IV ONE (15:17)
[2024-01-11 16:00] LABS: Appearance Urine Clear (Clear); Bacteria Urine Automated None Seen (None Seen); Bilirubin Urine Negative (Negative); Blood Urine Negative (Negative); Cast Urine Automated 0-2 /lpf (0-2); Color Urine Yellow; Epithelial Cell Urine Auto 0-2 /hpf (0-2); Glucose Urine UA Negative (Negative); Ketones Urine Negative (Negative); Leukocyte Esterase Urine Negative (Negative); Nitrite Urine Negative (Negative); Protein Urine 1+ (Negative); RBC Urine Automated 0-2 /hpf (0-2); Specific Gravity Urine 1.023 (1.000-1.030); Urobilinogen Urine Negative (Negative); WBC Urine Automated 0-5 /hpf (0-5)
[2024-01-11] MEDS: OPTIRAY 320 125ml IV ONE (16:10)
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
--- NOTE | 2024-01-11 16:54 | CT Scan Report ---
CHEST CTA for PULMONARY ARTERIES CT DOSE: 746.85 mGy.cm HISTORY: PE; tachypnea; SOB TECHNIQUE: Multiaxial CT images of the chest were performed following the intravenous administration of contrast to evaluate the pulmonary arteries. 3D/Maximal intensity projection images were also obta ined. Sagittal and coronal reformations were also reviewed. A dose lowering technique was utilized a dhering to the principles of ALARA. COMPARISON STUDY: Chest 01/11/2024. Chest CTA 03/08/2012. FINDINGS: Normal caliber thoracic aorta with no evidence for dissection. No filling defects within th e pulmonary arteries to suggest a pulmonary embolus. The main pulmonary artery is at the upper limits of normal measuring 2.9 cm in diameter. Limited views of the upper abdomen demonstrate a nodular con tour to the liver consistent with cirrhosis and a normal spleen. There is a punctate stone within the left kidney. Normal adrenal glands. Normal thyroid gland. Normal esophagus. The heart is normal in s ize. No pleural or pericardial effusions. No mediastinal or hilar lymphadenopathy. No acute fractures . Mild central bronchial wall thickening suggestive of a mild bronchitis. There is mild emphysema. No pneumothorax. No focal lung consolidations to suggest a pneumonia. No evidence for pulmonary edema. [id number]-[id number] narrowing within the proximal right middle lobe bronchus on image 111. IMPRESSION: 1. No evidence for a pulmonary embolus. 2. Mild emphysema. 3. Mild central bronchial wall thickening consistent with a bronchitis. 4. No focal lung consolidations to suggest pneumonia. 5. Xcjw-de-cjauqpuv narrowing within the proximal right middle lobe bronchus. This could be chronic. However, follow-up chest CT in 3-6 months recommended to assess for stability. 6. Cirrhotic liver. ACT 112: Positive. There are findings on this exam that require communication between the performing entity and the patient following Patient Test Result Information Act ([place] Act 112) guidelines. Electronically signed by: Lenard Eastman M.D. 01/11/2024 4:53 PM
[2024-01-11] MEDS ORDERED: ALBUT/IPRATROP 3MG/0.5MG NEB 3 ML VIAL NEB PRN (17:07)
[2024-01-11] MEDS: LORazepam 2 MG/1 ML VIAL IV STA (17:18)
[2024-01-11] MEDS: METOPROLOL TARTRATE 25 MG TAB PO ONE (17:51)
[2024-01-11] MEDS: POTASSIUM CHLORIDE CRTAB 20 MEQ TABCR PO STA (17:51)
[2024-01-11] MEDS: methylPREDNISolone 125 MG/2 ML VIAL IV STA (17:51)
[2024-01-11] MEDS: DOXYCYCLINE HYCLATE 100 MG in DEXTROSE 5% MINI-B 100 ML IV ONE (17:56)
[2024-01-11] MEDS: MAGNESIUM SULFATE / D5W 1 GM/100 ML BAG IV SCH (17:57)
[2024-01-11] MEDS ORDERED: LORazepam 1 MG TAB PO PRN (18:14)
[2024-01-11] MEDS ORDERED: ACETAMINOPHEN 325 MG TAB PO PRN (18:14)
[2024-01-11] MEDS ORDERED: ALPRAZolam 0.25 MG TABLET PO PRN (18:14)
[2024-01-11] MEDS: ENOXAPARIN INJ 40 MG/0.4 ML SYR SQ SCH (22:20)
--- NOTE | 2024-01-11 23:08 | Electrocardiogram Report ---
Test Reason : Blood Pressure : */* mmHG Vent. Rate : 116 BPM Atrial Rate : 116 BPM P-R Int : 134 ms QRS Dur : 74 ms QT Int : 310 ms P-R-T Axes : 72 55 99 degrees QTcB Int : 430 ms Sinus tachycardia Nonspecific ST and T wave abnormality Abnormal ECG When compared with ECG of 03-Jan-2024 10:55, No significant change was found Confirmed by Smooth Ortega ([id number]) on 01/11/2024 11:07:55 PM Referred By: Confirmed By: Smooth Ortega
[2024-01-12] MEDS: DOXYCYCLINE HYCLATE 100 MG in DEXTROSE 5% MINI-B 100 ML IV SCH (05:45)
[2024-01-12 06:10] LABS: Basophils # (auto) 0.02 K/uL (0.00-0.20); Basophils % (auto) 0.3 %; Hematocrit (blood only) 45.6 % (42.0-52.0); Hemoglobin 15.7 g/dl (14.0-18.0); Immature Granulocytes # (auto) 0.18 K/uL (0.01-0.20); Immature Granulocytes % (auto) 2.3 %; Lymphocytes # (auto) 0.43 K/uL (1.20-3.40); Lymphocytes % (auto) 5.6 %; Mean Corpuscular Hemoglobin 31.6 pg (25.0-34.0); Mean Corpuscular Hgb Conc 34.4 g/dL (32.0-36.0); Mean Corpuscular Volume 91.8 fL (80.0-100.0); Mean Platelet Volume 8.6 fL (9.4-12.4); Monocytes # (auto) 0.22 K/uL (0.11-0.59); Monocytes % (auto) 2.9 %; Neutrophils # (auto) 6.85 K/uL (1.40-6.50); Neutrophils % (auto) 88.9 %; Platelet Count 249 K/uL (130-400); RDW Coefficient of Variation 12.7 % (11.5-14.5); Red Blood Count 4.97 M/uL (4.70-6.10)
[2024-01-12 06:28] LABS: Calcium 8.7 mg/dl (8.6-10.3); Creatinine Clr Calc Pharmacy 68.6 ml/min; Est GFR (African American) 91.1 ml/min; Est GFR (Non-African American) 78.6 ml/min
[2024-01-12] MEDS: ALBUT/IPRATROP 3MG/0.5MG NEB 3 ML VIAL NEB SCH (08:06)
[2024-01-12] MEDS ORDERED: methylPREDNISolone 40 MG in SYRINGE 0 ML IV SCH (09:00)
[2024-01-12] MEDS: methylPREDNISolone 40 MG in SYRINGE 0 ML IV SCH (09:27)
[2024-01-12] MEDS: METOPROLOL TARTRATE 25 MG TAB PO SCH (09:27)
[2024-01-12] MEDS: PANTOprazole 40 MG TAB PO SCH (09:28)
[2024-01-12] MEDS: FOLIC ACID 1 MG TAB PO SCH (09:28)
[2024-01-12] MEDS: FLUTICASONE FUROATE 100MCG 14 PUFFS/INHALER INH SCH (09:29)
[2024-01-12] MEDS: dilTIAZem HCL 240 MG CAPCR PO SCH (09:29)
[2024-01-12] MEDS: UMECLIDINIUM/VILANTEROL 62.5/25MCG 7 PUFFS/INHALER INH SCH (09:30)
[2024-01-12 11:17] VITALS: RESP 18
--- NOTE | 2024-01-12 14:11 | Discharge Summary ---
Discharge Summary Date of Service January 12, 2024 Principal Dx & Hospital Course #1 = Principal Diagnosis (1) Acute bronchitis with chronic obstructive pulmonary disease (COPD): About 1 week of respiratory symptoms with wheezing on admission. Treated with IV steroids and doxycycline and had great improvement. No evidence of lobar pneumonia on CT/x-ray -given swelling of legs with Trelegy, advised to revert back to Advair discus he had previously and use albuterol with spacer prn -strongly encouraged cessation of vaping -dc to home on 6 more days of po doxy and 6 days of po prednisone 40mg daily (2) Tachycardia: Sinus tachycardia on admission. Given this persistent tachycardia and dyspnea with normal BMP and no pulmonary edema CTA was obtained to R/o PE. No evidence of PE Suspect reactive. Treatment of acute bronchitis with COPD as above Patient did have a 3 beat run of NSVT while in the ER. Asymptomatic with this. He denies chest pain at any point including on exertion. Troponin is negative. EKG is sinus tachycardia Echo normal Started on metoprolol twice daily on admission but no need to continue further-he can continue on usual diltiazem and f/u with PCP (3) Bilateral lower extremity edema: Bilateral without calf pain. CTA shows no evidence of PE. Lower suspicion for DVT given bilateral findings BNP is normal, ECHO normal, BPs normal, he received Lasix in the ER. He is not otherwise with evidence of volume overload, does not have orthopnea -suspect given correlation with starting after starting Trelegy, advised switching back to Advair to eliminate the LAMA component in case contributing to edema no further edema after lasix, f/u with PCP (4) Alcohol abuse: Patient reports past history of alcohol withdrawal and abuse, went through rehab and now drinks a beer and sometimes a little bit of whiskey in the evening. Denies recent withdrawal symptoms, had gone for over 7 months without any alcohol although has been drinking in the evenings for the last couple of weeks AWSS at risk protocol No sweating, diaphoresis, or tremulousness on admission. No altered mental status, does not appear in withdrawal at time of admission or on discharge (5) Abnormal chest CT: RML bronchus with narrowing on CT Chest given history of smoking especially, needs repeat Chest CT in 3-6 months-commu nicated this with patient and his PCP can order this CT Plan DVT prophylaxis: Lovenox Disposition: dc to home Notes For Next Care Provider Check CT Chest in 3-6 months Medication Changes From Visit Added prednisone 40mg po daily x 6 more days Added doxycycline 100mg po bid x 6 more days Stop Trelegy and resume Advair Admission HPI Per Admitting Provider No cough.no fevers chills or sweats. no sputum change +wheezing in the last week Smokes vape 'all day most days' History of COPD on multipl einhalers Legs were not swollen last week, sudden swelling after starting Trelegy inhaler thi spast month No calf pain Denies orthopnea Denies pleuritic pain +dyspnea in the last 7 days. denies history of ches tpain on exertion or at rest Fhx of [place], CAD. Pt denies history of [place], CHF. Pt endorses history of intermittent HTN Medical History: Reviewed Medications: Reviewed Surgical History: Reviewed Family history: Reviewed Allergies: Reviewed Social History: Vape use daily. ETOH evenings, has been through withdrawal and rehab in the past. Just went 7 months without any etoh and no withdrawal. Has had a beer and a whiskey or two in the evenings lately. Last drink last night. AWSS at risk protocol ordered. Code Status:: Full Discharge Exam Constitutional WD/WN, vitals as above Respiratory normal respiratory effort, lungs clear to auscultation Cardiovascular RRR, no murmur, no edema Gastrointestinal (Abdomen) normal bowel sounds, soft, nontender, no hepatosplenomegaly Psychiatric A+Ox3, euthymic affect Discharge Plan Discharge Items Patient Disposition: Home - Self-Care Reason For Visit: AOC COPD, NSVT Discharge Diagnosis: COPD exacerbation Condition on Discharge: Good Activity: As commented below Lifting: Gradually increase as tolerated Bathing: No limitations Exercise/Sports: Gradually increase as tolerated Driving/Machine Use: No limitations Non-emergency contact: Primary Care Provider Call non-emergency contact if: you have any medication questions and your symptoms worsen Follow-up/Referrals: Liliana Awad MD [Primary Care Provider] - 01/19/24 11:30 am (Follow up within 1-2 weeks. PCP follow up is scheduled for January 18 at 11:30 am) Diet: Regular Addtl Attending Provider Instructions: Please finish out 6 more days of the prednisone and doxycycline for your COPD exacerbation. You can continue to use your Trelegy inhaler and albuterol as needed, but if your leg swelling returns, please discuss with your PCP about changing to a different inhaler. You have an abnormality in your right lung seen on chest CT that will require a repeat CT scan of the chest in 3-6 months to ensure it is not changing in appearance. This abnormality is a narrowing of one of your bronchi/airways. Because of your history of smoking/vaping, we want to make sure this is not a cancer. I strongly encourage you to quit vaping to prevent further damage to your lungs and reduce your chances of getting cancer. Pending Studies at Discharge: No Stand-Alone Forms: My [facility], Smoking Cessation Medications and DC Order Prescriptions: New prednisone 20 mg tablet 40 mg PO DAILY 6 Days Qty: 12 0RF doxycycline hyclate 100 mg tablet 100 mg PO BID Qty: 12 0RF Continued albuterol sulfate 90 mcg/actuation HFA aerosol inhaler See Rx Instructions .ROUTE .COMPLEX Qty: 8.5 11RF Dose Instruction: INHALE 2 PUFFS BY MOUTH EVERY 6 HOURS NEEDED FOR SHORTNESS OF BREATH FOR WHEEZING Rx Instructions: INHALE 2 PUFFS BY MOUTH EVERY 6 HOURS NEEDED FOR SHORTNESS OF BREATH FOR WHEEZING sildenafil (pulm.hypertension) 20 mg tablet 20 mg PO ONCE PRN (Reason: sexual activity) Qty: 60 6RF Rx Instructions: Take 1-5 tablets as needed 1 hour prior to intercourse Do not exceed 100mg in 24 hours diltiazem HCl [Cartia XT] 240 mg capsule,extended release 24hr 240 mg PO QAM Rx Instructions: Take 1 capsule by mouth once daily alprazolam 0.25 mg tablet 0.25 mg PO BID PRN (Reason: ud) omeprazole 20 mg capsule,delayed release(DR/EC) 20 mg PO QAM Rx Instructions: Take 1 capsule by mouth twice daily folic acid 1 mg tablet 1 mg PO QAM Rx Instructions: Take 1 tablet by mouth once daily Trelegy Ellipta 100-62.5-25 mcg blister with device 1 inh INH QAM turmeric root extract 500 mg Capsule 500 mg PO QAM Discharge Orders: Discharge Order (Routine); Ordered 01/12/24 Ordered By: Maribell Chen Admission Data Admit Date/Time: 01/11/24 17:26 Attending Provider: Maribell Chen Admit Provider: Bobby Morse Primary Care Provider: Liliana Awad Other Providers: Bobby Morse Hospital Stay Data Consultations 01/11/24 15:54 ED Decision to Admit Stat Diagnostic Imagining Performed 01/11/24 15:54 CT for pulmonary embolism PE [CT angio chest PE protocol] Stat Pending Results Patient Have Any Pending Studies at Discharge: No Discharge Instructions Given to Patient (Per Discharging Provider) Please finish out 6 more days of the prednisone and doxycycline for your COPD exacerbation. You can continue to use your Trelegy inhaler and albuterol as needed, but if your leg swelling returns, please discuss with your PCP about changing to a different inhaler. You have an abnormality in your right lung seen on chest CT that will require a repeat CT scan of the chest in 3-6 months to ensure it is not changing in appearance. This abnormality is a narrowing of one of your bronchi/airways. Because of your history of smoking/vaping, we want to make sure this is not a cancer. I strongly encourage you to quit vaping to prevent further damage to your lungs and reduce your chances of getting cancer. Total Time Total Time Spent Total Time Spent (In Minutes): 35 min Total Time Includes: Examination of the Patient, Discharge Planning and Medication Reconciliation Coding Level of Care Code 35590 INP/OBS DISCH >30 MIN Diagnoses Acute bronchitis with chronic obstructive pulmonary disease (COPD) J44.0; J20.9 Tachycardia R00.0 Bilateral lower extremity edema R60.0 Alcohol abuse F10.[address] R93.89
[2024-01-12 14:49] VITALS: TEMP 99.5
--- NOTE | 2024-01-12 15:00 | XCELERA ---
[id number]
[2024-01-12 15:47] VITALS: PULSE 76; O2SAT 97
[2024-01-12 16:09] VITALS: BP 158/94
== END 2024-01-12 16:23 | disposition home or self-care (01) | DRG 202 ==
LOC: ED 12:21 → EDINP 17:26 → SUATTDRO 17:26 → EDINP 18:14 → 2E 21:42

== ENCOUNTER 2024-03-22 07:58 | Observation (INO) ==
--- NOTE | 2023-12-29 12:09 | PAT Medication Instructions ---
Medication Instructions Date of Service December 29, 2023 Home Medications Medication Instructions Recorded albuterol sulfate 90 mcg/actuation See Rx Instructions .Route 09/14/23 aerosol inhaler .COMPLEX #8.5 grams sildenafil (pulm.hypertension) 20 20 mg PO ONCE PRN sexual activity 11/14/23 mg tablet #60 tabs prednisone 20 mg tablet See Rx Instructions PO .COMPLEX 12/27/23 #30 tabs albuterol sulfate 90 mcg/actuation aerosol inhaler See Rx Instructions .Route .COMPLEX sildenafil (pulm.hypertension) 20 mg tablet 20 mg PO ONCE PRN alprazolam 0.25 mg tablet 0.25 mg PO BID PRN diltiazem HCl 240 mg capsule,extended release 24 hr (Cartia XT) 240 mg PO QAM fluticasone fur. 100 mcg-umeclid 62.5 mcg-vilant 25 mcg inhalat.powder (Trelegy Ellipta) 1 inh inhalation QAM folic acid 1 mg tablet 1 mg PO QAM omeprazole 20 mg capsule,delayed release 20 mg PO QAM prednisone 20 mg tablet See Rx Instructions PO .COMPLEX turmeric root extract 500 mg capsule 500 mg PO QAM Continue as directed albuterol sulfate 90 mcg/actuation aerosol inhaler See Rx Instructions .Route .COMPLEX prednisone 20 mg tablet See Rx Instructions PO .COMPLEX STOP taking 2 weeks before surgery (or as soon as possible if surgery is within 2 weeks) turmeric root extract 500 mg capsule 500 mg PO QAM DO NOT take the morning of surgery sildenafil (pulm.hypertension) 20 mg tablet 20 mg PO ONCE PRN folic acid 1 mg tablet 1 mg PO QAM Take morning of surgery With a small sip of water, OTHERWISE NOTHING TO EAT OR DRINK AFTER MIDNIGHT: alprazolam 0.25 mg tablet 0.25 mg PO BID PRN(if needed) diltiazem HCl 240 mg capsule,extended release 24 hr (Cartia XT) 240 mg PO QAM fluticasone fur. 100 mcg-umeclid 62.5 mcg-vilant 25 mcg inhalat.powder (Trelegy Ellipta) 1 inh inhalation QAM omeprazole 20 mg capsule,delayed release 20 mg PO QAM Take evening before surgery alprazolam 0.25 mg tablet 0.25 mg PO BID PRN(if needed) Other Notes If you have any questions please call us at [phone] or [phone] or [phone] or [phone]
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
[~2024-03-22 07:58] MED LIST changes: +BUPIVACAINE 0.5 % 5 MG/1 ML PF 10ML VIAL ONE; -OMEP20CA9 PO; -QUIN1TAB49 PO; -ZOLP10TA PO; -[UNRECOGNIZED DRUG - CODE] PO
[2024-03-22] MEDS ORDERED: KETOROLAC 30 MG/ML VIAL ONE (08:28)
[2024-03-22] MEDS ORDERED: PROPOFOL IV EMULSION 10 MG/ML 20 ML VIAL IV ONE (08:28)
[2024-03-22] MEDS ORDERED: GLYCOPYRROLATE 0.2 MG/ML VIAL ONE (08:28)
[2024-03-22] MEDS ORDERED: ONDANSETRON INJ 2 MG/ML 2 ML VIAL ONE (08:28)
[2024-03-22] MEDS ORDERED: SUGAMMADEX SODIUM 200 MG/2 ML VIAL IV ONE (08:28)
[2024-03-22] MEDS ORDERED: MIDAZOLAM HCL 1 MG/ML 2ML VIAL ONE (08:28)
[2024-03-22] MEDS ORDERED: fentaNYL citrate PF 100 MCG/2 ML VIAL ONE (08:28)
[2024-03-22] MEDS ORDERED: LIDOCAINE 2% 2 ML VIAL/AMP(20MG/ML) INFIL ONE (08:28)
[2024-03-22] MEDS ORDERED: KETAMINE HCL 10MG/ML SYR ONE (08:28)
[2024-03-22] MEDS ORDERED: ROCURONIUM BROMIDE 10 MG/ML 5 ML VIAL IV ONE (08:28)
[2024-03-22 08:40] LABS: Basophils # (auto) 0.08 K/uL (0.00-0.20); Eosinophils # (auto) 0.11 K/uL (0.00-0.50); Eosinophils % (auto) 1.3 %; Hematocrit (blood only) 43.9 % (42.0-52.0); Hemoglobin 15.5 g/dl (14.0-18.0); Immature Granulocytes # (auto) 0.08 K/uL (0.01-0.20); Lymphocytes # (auto) 1.37 K/uL (1.20-3.40); Lymphocytes % (auto) 16.5 %; Mean Corpuscular Hgb Conc 35.3 g/dL (32.0-36.0); Mean Corpuscular Volume 93.4 fL (80.0-100.0); Mean Platelet Volume 8.7 fL (9.4-12.4); Monocytes # (auto) 0.58 K/uL (0.11-0.59); Neutrophils # (auto) 6.09 K/uL (1.40-6.50); Neutrophils % (auto) 73.2 %; Platelet Count 344 K/uL (130-400); RDW Coefficient of Variation 13.1 % (11.5-14.5); RDW Standard Deviation 45.2 fL (36.4-46.3); White Blood Count 8.31 K/ul (4.8-10.8)
[2024-03-22 08:53] LABS: BUN Creatinine Ratio 8.3 (10-20); Calcium 9.1 mg/dl (8.6-10.3); Creatinine Clr Calc Pharmacy 93.2 ml/min; Potassium 3.2 mmol/L (3.5-5.1)
[2024-03-22] MEDS: LR 15ML/HR IV SCH (08:55)
[2024-03-22] MEDS: ACETAMINOPHEN 500 MG TAB PO SCH ×2 (08:55→15:02)
[2024-03-22] MEDS: LR 60ML/HR IV SCH (08:56)
[2024-03-22] MEDS: dexAMETHasone**PF** 10 MG/ML VIAL IV SCH (08:56)
[2024-03-22] MEDS: GABAPENTIN 300 MG CAP PO SCH (08:56)
[2024-03-22] MEDS: FAMOTIDINE 20 MG TAB PO SCH (08:56)
[2024-03-22 09:05] LABS: INR 1.1 (0.9-1.1); Partial Thromboplastin Ratio 1.2; Partial Thromboplastin Time 32 Seconds (21-31); Prothrombin Time 11.7 Seconds (9.0-12.0)
--- NOTE | 2024-03-22 09:06 | History & Physical Bridge Note ---
Date of Service March 22, 2024 History & Physical Bridge Note I have examined the patient, reviewed the History & Physical and in the interval since the performance of the History & Physical I have noted the following changes of clinical significance: no changes noted
[2024-03-22] MEDS ORDERED: ATROPINE SULFATE 0.1 MG/ML 10ML SYR IV PRN (09:34)
[2024-03-22] MEDS ORDERED: ONDANSETRON INJ 2 MG/ML 2 ML VIAL IV PRN ×2 (09:34→12:57)
[2024-03-22] MEDS ORDERED: ePHEDrine sulfate 50 MG/ML AMP IV PRN (09:34)
[2024-03-22] MEDS ORDERED: fentaNYL citrate PF 100 MCG/2 ML VIAL IV PRN (09:34)
[2024-03-22] MEDS: TRANEXAMIC ACID 1,000 MG **IV Pre-op IV SCH (09:48)
[2024-03-22] MEDS: ceFAZolin 2000MG 2,000 MG/15 ML SYR IV SCH (10:00)
[2024-03-22] MEDS: Nursing to Pharmacy Communication SCH (10:00)
[2024-03-22] MEDS ORDERED: PHENYLEPHRINE 100MCG/ML 5ML SYR ONE (10:25)
[2024-03-22] MEDS ORDERED: ePHEDrine sulfate 50 MG/5 ML SYR ONE (10:25)
[2024-03-22] MEDS: ROPIV 0.5% 246mg, Ketorolac 30mg, EPINEPHrine 0.5mg in NSS INFIL SCH (10:33)
[2024-03-22] MEDS: TRANEXAMIC ACID 1,000 MG **IV Intra-op IV SCH (11:06)
--- NOTE | 2024-03-22 11:06 | Operative Report ---
PG Post Operative Report Pre & Post Diagnosis Operation Date: 03/22/24 10:00 Pre-Op Diagnosis: Cuff tear arthropathy of the right shoulder with tendinopathy long head of the biceps tendon Post-Op Diagnosis: Cuff tear arthropathy of the right shoulder with tendinopathy long head of the biceps tendon I identified the patient and participated in the time-out.: Yes Procedure Operation Date: 03/22/24 10:00 Actual Procedures p Right Reverse Total Shoulder Arthroplasty(Right) with open biceps tenodesis as a distinct and separate procedure (modifier 59)- Cornell Tavares DO Surgeon Cornell Tavares DO Warehouse Analyst Hussein Kaur PA-C Estimated Blood Loss 150 Findings Consistent with Post-Op Diagnosis Specimens Right humeral head Description of Procedure A CPT code modifier 59: The long head of the biceps tendon was enlarged and inflamed consistent with tendinopathy. A tenodesis was opted. This was a separate and distinct portion of the procedure. For these reasons, a CPT code modifier 59 will be added to this case. Implants used: I used a [employer]omet Comprehensive reverse total shoulder arthroplasty system with a size 7 press fit micro humeral stem, a +3 offset humeral tray and a +3 retentive humeral bearing, a 25 mm small augment baseplate with a 6.5 mm central screw and superior and inferior locking screws, and a size 36 mm eccentric glenosphere. Shahid arrived at [facility] for the above procedure. He was seen in the preoperative holding area and the operative extremity was identified and signed. He was given a preoperative antibiotic, TXA, and an interscalene nerve block. He was taken back to the operating room, laid on table in supine position, and put under general anesthesia. He was then put into the beachchair position. The shoulder was then prepped and draped in sterile fashion. A timeout was done and the patient and the operative extremity was properly identified. A deltopectoral approach was used. Dissection was taken down through the fascia and the deltoid was retracted laterally and the conjoined tendon was retracted medially. The anterior shoulder was exposed. The biceps groove was opened up and the biceps tendon was examined extensively. The biceps tendon demonstrated enlargement and inflammatory changes consistent with longstanding inflammation in the context of osteoarthritis and cuff arthropathy. The long head of the biceps tendon was then tenodesed to the upper border of the pectoralis major. This was a separate and distinct portion of the procedure. The subscapularis was then directly released off the lesser tuberosity with a peel technique. The inferior capsule was released and the humeral head was dislocated. A canal finding reamer was sent down the center of the humeral canal. Sequential reaming up to a size 7 reamer was done. Off that reamer, a proximal humeral resection guide was placed. The proximal humerus was resected at 135 of inclination and 25 of retroversion. Osteophytes were then removed and the glenoid was exposed. Time was spent doing a complete capsular and labral release. The glenoid guide was then placed in the inferior aspect of the glenoid. A 3.2 mm Steinmann pin was then placed into the glenoid vault at 10 of inclination. The glenoid baseplate was then reamed. The final size 25 mm small augment baseplate was then impacted in the place. A 6.5 mm central screw was then placed followed by superior and inferior locking screws. A 36 mm eccentric glenosphere was then impacted into place. Surrounding soft tissues were then injected with 100 cc an orthopedic pain control cocktail. The proximal humerus was then exposed. Sequential broaching of the humerus up to a size 7 broach was done. Off that broach a +3 offset and +3 retentive humeral tray was trialed. The shoulder was then reduced, brought through a full range of motion, and felt to be stable. The shoulder was then dislocated and the broach was removed. The final size 7 micro press-fit humeral stem was then impacted into place. A +3 retentive humeral bearing was then snapped onto a +3 offset humeral tray. The humeral tray was then impacted onto the humeral stem. The shoulder was once again reduced, brought through a full range of motion, and felt to be stable. The subscapularis was poor quality and unable to be repaired. A dilute betadyne lavage was then done for 3 minutes. The joint was then irrigated with normal saline solution. Hemostasis was obtained. The interval was closed with 2-0 Vicryl suture. The skin was then closed with 2-0 Vicryl and sowmya. A Silverlon dressing was placed and the arm was rested in a regular arm sling. He was then extubated and transferred to a hospital bed. He taken to the postanesthesia care unit in stable condition. He tolerated the procedure well. Hussein Kaur PA-C, was present for the entire procedure. He was critical for pa tient positioning, prepping, draping, retraction exposure, wound closure and application of sterile dressing. I attest to the content of the Intraoperative Record and any orders documented therein. Any exceptions are noted below.
[2024-03-22] MEDS: ORTHO JOINT ANESTHETIC ONE (12:26)
[2024-03-22] MEDS ORDERED: ALBUTEROL HFA 8 GM INHALER INH PRN (12:57)
[2024-03-22] MEDS ORDERED: MAGNESIUM HYDROXIDE SUSP 30 ML UDC PO PRN (12:57)
[2024-03-22] MEDS ORDERED: ALPRAZolam 0.25 MG TABLET PO PRN (12:57)
[2024-03-22] MEDS ORDERED: METOCLOPRAMIDE HCL INJ 5 MG/ML 2 ML VIAL IV PRN (12:57)
[2024-03-22] MEDS ORDERED: NALOXONE HCL 0.4 MG/1 ML VIAL/CARP IV PRN (12:57)
[2024-03-22] MEDS ORDERED: oxyCODONE HCL IR 5 MG TAB (IMMEDIATE RELEASE) PO PRN (12:57)
[2024-03-22] MEDS ORDERED: bisacodyL 10 MG SUPP PR PRN (12:57)
[2024-03-22] MEDS ORDERED: HYDROmorphone INJ 0.5 MG/0.5 ML SYR IV PRN (12:57)
--- NOTE | 2024-03-22 13:05 | XRay Report ---
XR shoulder RT min 2V routine HISTORY: 64 years-old Male Post shoulder surgery right shoulder arthroplasty COMPARISON: Chest radiograph 01/11/2024 TECHNIQUE: 2 views of the right shoulder FINDINGS: Reverse right shoulder arthroplasty with overlying skin sowmya, expected postoperative soft tissue s welling and deep tissue air. No acute fracture or unexpected opaque foreign body. IMPRESSION: Right shoulder arthroplasty with expected postoperative changes. ACT 112: Negative or not required by law. The above report was generated using voice recognition software. It may contain grammatical, syntax o r spelling errors. Electronically signed by: Anton Paul M.D. 03/22/2024 1:04 PM
--- NOTE | 2024-03-22 14:41 | Anesthesiology Progress Note ---
Date of Service March 22, 2024 Anesthesia Post Procedure Vital Signs Vital Signs: Temp Pulse Pulse Resp BP Pulse Ox O2 Del Method 03/22/24 14:19 36.8 C 82 16 137/83 97 Nasal Cannula 03/22/24 13:26 36.6 C 86 16 138/85 96 Nasal Cannula 03/22/24 12:51 36.5 C 76 16 132/81 96 Room Air 03/22/24 12:05 36.6 C 81 18 138/89 95 Nasal Cannula 03/22/24 11:55 84 18 142/85 H 95 Nasal Cannula 03/22/24 11:45 94 H 19 126/93 94 Room Air 03/22/24 11:35 87 17 141/83 H 98 Oxymask 03/22/24 11:26 36.0 C L 92 H 13 152/92 H 96 Oxymask 03/22/24 08:29 36.7 C 87 20 167/103 H 96 Room Air O2 Flow Rate 03/22/24 14:19 2 03/22/24 13:26 2 03/22/24 12:51 03/22/24 12:05 2 03/22/24 11:55 2 03/22/24 11:45 03/22/24 11:35 10 03/22/24 11:26 10 03/22/24 08:29 Pain Intensity Right Shoulder: Pain Intensity: 2 Transfer of Care Handoff Completed per policy Notes Mental Status: alert / awake / arousable Patient Amnestic to Procedure: Yes Nausea / Vomiting: adequately controlled Pain: adequately controlled Airway Patency, RR, SpO2: stable & adequate BP & HR: stable & adequate Hydration State: stable & adequate Anesthetic Complications: no major complications apparent and Pt Satisfied with anesthetic care
[2024-03-22] MEDS: POTASSIUM CHLORIDE CRTAB 20 MEQ TABCR PO STA ×2 (15:00→15:04)
[2024-03-22] MEDS: KETOROLAC TROMETHAMINE 15 MG/ML VIAL IV SCH (15:03)
[2024-03-22] MEDS: ceFAZolin 1000MG 1,000 MG/7.5 ML SYR IV SCH (18:31)
[2024-03-22] MEDS: DOCUSATE SODIUM 100 MG CAP PO SCH (20:29)
[2024-03-22] MEDS: SENNA 8.6 MG TAB PO SCH (20:30)
[2024-03-23 07:13] VITALS: PULSE 79; RESP 16; TEMP 97.5; O2SAT 93
[2024-03-23] MEDS: FLUTICASONE/VILANTEROL 200/25MCG 14 PUFFS/INHALER INH SCH (08:08)
[2024-03-23] MEDS: FOLIC ACID 1 MG TAB PO SCH (08:08)
[2024-03-23] MEDS: PANTOprazole 40 MG TAB PO SCH (08:08)
[2024-03-23] MEDS: dilTIAZem HCL 240 MG CAPCR PO SCH (08:08)
[2024-03-23] MEDS: FUROSEMIDE 20 MG TAB PO SCH (08:09)
[2024-03-23] MEDS: dexAMETHasone 4 MG TAB PO SCH (08:10)
[2024-03-23] MEDS: MULTIVITAMIN TAB PO SCH (08:10)
--- NOTE | 2024-03-23 08:10 | Orthopedic Progress Note ---
Date of Service March 23, 2024 Assessment & Plan (1) Status post reverse total replacement of right shoulder: Overall he is doing fairly well. He is not having much pain in the right shoulder. He will be seen by physical therapy today for ambulation and range of motion exercises. He can be discharged to home later today. He will follow with orthopedics in 2 weeks. Zuly Key was seen and examined at bedside this morning. Overall he is doing very well. He is not having much pain in the right shoulder. He has been up and ambulating to the bathroom. He has no complaints.. Review of Systems All systems reviewed & are unremarkable except as noted in HPI & below. Physical Exam On physical exam of the right shoulder, the dressing is clean and dry. He is wearing his sling as instructed. He is active motion of his hand and his wrist.. Results & Data Results & Data Laboratory Results . Diagnostic Findings Postoperative x-rays of the right shoulder show the prosthesis to be in anatomic alignment without any evidence of fracture, dislocation, or loosening.. PG Care Time/CCT Total # of Minutes Spent Total Time Spent with Patient: Total time spent is greater than 50% in coordination of care (as documented) at patient's floor/unit and/or counseling patient: Coding Level of Care Code 02115 Post Operative Follow-Up Diagnoses Status post reverse total replacement of right shoulder Z96.611
[2024-03-23] MEDS: PNEUMOCOCCAL VACCINE (PCV20) 20-VAL CONJ-DIP CRM/PF 0.5 ML SYR IM ONE (08:11)
--- NOTE | 2024-03-23 08:11 | Discharge Summary ---
Date of Service March 23, 2024 Admission HPI (Per Admitting) Shahid is a pleasant 63-year-old male who has been dealing with chronic increasing right shoulder pain. X-rays and clinical examination have been diagnostic for cuff tear arthropathy of the right shoulder. He has a history of a rotator cuff repair by Dr. Cook in the past. He has failed extensive conservative treatment, he has elected to proceed with a right reverse shoulder arthroplasty. Admission Exam (Per Admitting) On physical exam of the right shoulder, he has decreased range of motion weakness throughout. Pain of the glenohumeral joint line. Principal Diagnosis Same as "Discharge Diagnosis" noted below under Discharge Instructions. Discharge Exam On physical exam of the right shoulder, the dressing is clean and dry. He is wearing his sling as instructed. He is active motion of his hand and his wrist.. Discharge Data Procedures Performed Operation Date: 03/22/24 10:00 Actual Procedures p Right Reverse Total Shoulder Arthroplasty(Right) - Cornell Tavares DO Ordered Studies 03/22/24 05:00 US - OR guided needle placemen Routine Hospital Course (1) Status post reverse total replacement of right shoulder: On March 22, 2024 Shahid arrived at [facility] and underwent a right shoulder replacement without complication. He had a general anesthetic and a left interscalene nerve block. Postoperatively he was placed in a sling and transferred to the general orthopedic floors. His hospital course was uneventful. On postop day #1, his blood pressure was a little bit elevated but this is a chronic issue. He was asymptomatic. He has pain was well- controlled.. He was able to participate well with physical therapy doing am bulation and range of motion exercises. He was then discharged to home. He will follow-up with orthopedics in 2 weeks. PG Care Time/CCT Total # of Minutes Spent Total Time Spent with Patient: Total time spent is greater than 50% in coordination of care (as documented) at patient's floor/unit and/or counseling patient: Discharge Plan Discharge Items Patient Disposition: Home - Self-Care Reason For Visit: Degenerative Joint Disease, Right Shoulder Discharge Diagnosis: Right reverse shoulder replacement Activity: Per Instructions section Non-emergency contact: Surgeon Call non-emergency contact if: your wound has increased redness and your wound has increased drainage Follow-up/Referrals: Shahid Lujan MD [Physician] - Diet: Regular Addtl Attending Provider Instructions: Activity and Therapy Recommendations: * If you are using [facility] then therapy will be provided at your home until they feel you have accomplished all of your goals. * If you are using [facility] then Physical Therapy will be provided until they feel you are ready to start Outpatient Physical Therapy. * If you are not using home therapy then Outpatient Physical Therapy should start about 3-5 days from your day of surgery. Therapy will last about 8-12 weeks * Wear your sling for 3 weeks, unless otherwise instructed. You may remove your sling to shower and to dress, but otherwise, you should be in your sling at all times, including while sleeping * The shoulder replacement is very stable and you can use your hand while in the sling * You were shown a series of exercises in the hospital. Do these exercises daily including the exercises you were shown in physical therapy. Medications: * Narcotic You will likely be sent home from the hospital with a prescription for the narcotic pain medication that worked best throughout your stay. * Cefadroxil -take the antibiotic twice a day for 10 days to help prevent infection. * Other medications may be prescribed for specific circumstances. If you have any questions, please call the office at . * Resume previous home medications unless otherwise instructed Dressing Care: Leave the Silverlon dressing in place for 7 days. After 7 days you may remove the dressing. If the incision is not draining then you may leave the sowmya open to air. If there is a little bit of drainage or if the sowmya are getting stuck on your clothing then cover the incision with a dry dressing. The sowmya will be removed at your 2 week follow-up appointment. Showering: You may shower with the Silverlon dressing in place. Do not let the shower spray hit the dressing directly. Pat the Silverlon dressing dry. If the dressing becomes wet underneath, then simply remove the dressing. Keep the incision dry until you are 7 days out from the day of surgery. After 7 days you may remove the Silverlon dressing and shower with the sowmya exposed. Let soapy water run over the sowmya and pat them dry. Do not scrub or soak the incision. Diet: You may resume your previous diet. Things To Watch For: * Drainage from the incision site that occurs more than one week after your surgery. * Increased redness at the incision site. * Fever above 102 degrees Fahrenheit. * Unusual chest pain or shortness of breath. * Call [facility] at with any of the above problems Follow-Up Visit: Follow-up with Dr. Tavares's PA (Cornell Jean Baptiste) 2-3 weeks after your day of surgery. He will remove your sowmya and answer any questions. If you have any additional questions or concerns, Dr Tavares is usually in the office at the same time and will be available An appointment was probably scheduled when you signed-up for surgery in the office. If you have any questions call More detailed instructions as well as Frequently Asked Questions were provided in a folder by our office when you signed-up for surgery. Please review these instructions when you get home. If you have any further questions or concerns, please feel free to call the offi ce at [phone] Pending Studies at Discharge: No Stand-Alone Forms: My [facility], Smoking Cessation Medications and DC Order Prescriptions: New oxycodone 5 mg Tablet 5 mg PO Q4H PRN (Reason: pain) Qty: 30 0RF cefadroxil 500 mg capsule 500 mg PO BID 10 Days Qty: 20 0RF Continued albuterol sulfate 90 mcg/actuation HFA aerosol inhaler See Rx Instructions .ROUTE .COMPLEX Qty: 8.5 11RF Dose Instruction: INHALE 2 PUFFS BY MOUTH EVERY 6 HOURS NEEDED FOR SHORTNESS OF BREATH FOR WHEEZING Rx Instructions: INHALE 2 PUFFS BY MOUTH EVERY 6 HOURS NEEDED FOR SHORTNESS OF BREATH FOR WHEEZING omeprazole 20 mg capsule,delayed release(DR/EC) 20 mg PO QAM Qty: 60 5RF Rx Instructions: Take 1 capsule by mouth twice daily diltiazem HCl [Cartia XT] 240 mg capsule,extended release 24hr 240 mg PO QAM Qty: 30 5RF Rx Instructions: Take 1 capsule by mouth once daily tramadol 50 mg tablet 50 mg PO Q8H PRN (Reason: pain) Qty: 30 0RF sildenafil (pulm.hypertension) 20 mg tablet 20 mg PO ONCE PRN (Reason: sexual activity) Qty: 60 6RF Rx Instructions: Take 1-5 tablets as needed 1 hour prior to intercourse Do not exceed 100mg in 24 hours folic acid 1 mg tablet 1 mg PO QAM Rx Instructions: Take 1 tablet by mouth once daily turmeric root extract 500 mg Capsule 500 mg PO QAM fluticasone propion-salmeterol [Advair Diskus] 250-50 mcg/dose Blister With Device 1 inh INHALATION BID Glucosamine Chondroitin 550-30-1 mg Capsule 1 cap PO DAILY alprazolam 0.25 mg tablet 0.25 mg PO BID PRN (Reason: Anxiety) furosemide 20 mg tablet 20 mg PO QAM Discharge Orders: Discharge Order (Routine); Ordered 03/23/24 Ordered By: Cornell Tavares Admission Data Admit Date/Time: 03/22/24 11:28 Attending Provider: Cornell Tavares Admit Provider: Cornell Tavares Primary Care Provider: Liliana Awad
[2024-03-23 08:33] VITALS: BP 176/100
== END 2024-03-23 11:15 | disposition home or self-care (01) ==
LOC: ASU 07:58 → 3E 07:58